=== PATIENT | female | born 1955 | race Caucasian/White ===

== ENCOUNTER 2017-04-11 11:39 | Emergency (ER) | payer MEDICARE, OTHER ==
[~2017-04-11] VITALS: Wt 80.0 kg
[~2017-04-11 11:39] MED LIST: ATEN50TA; GLIP-95; MTF1000T; PIOG30TA19; VENL75TA61
[2017-04-11] MEDS ORDERED: ACETAMINOPHEN 500 MG TAB PO STA (12:23)
--- NOTE | 2017-04-11 12:43 | ERD ---
ER Documentation Chief Complaint Date/Time DATE: 04/11/17 TIME: 12:40 Chief Complaint R LEG PAIN X 3 WEEKS HPI This is a 61-year-old female presents to the emergency department today complaining of right knee and leg pain for the past 3 weeks. Patient states that on March 19 she traveled on a bus to [place] and was on the bus for many hours and has had pain since that time. States that she did take some Advil yesterday which improved her pain a little bit. Denies any fall or significant trauma. States she is able to ambulate but has pain. Denies any fevers or chills. Denies any chest pain or shortness of breath ROS All systems reviewed and are negative except as per history of present illness. Medications Home Meds Active Scripts Naproxen* (Naprosyn*) 500 Mg Tablet, 500 MG PO BID Y for PAIN AND/OR INFLAMMATION, #30 TAB Prov:MOOK ROLLE PA-C 04/11/17 Tramadol HCl (Tramadol HCl) 50 Mg Tablet, 50 MG PO Q4 Y for PAIN, #20 TAB Prov:MOOK ROLLE PA-C 04/11/17 Reported Medications Atenolol* (Atenolol*) 50 Mg Tablet 11/18/09 Glipizide* (Glipizide*) 10 Mg Tablet 11/18/09 Venlafaxine Hcl (Effexor) 75 Mg Tablet 11/18/09 Pioglitazone Hcl* (Actos*) 30 Mg Tablet 11/18/09 Metformin* (Glucophage*) 1,000 Mg Tablet 11/18/09 Allergies Allergies: Coded Allergies: No Known Allergies (Verified Allergy, Mild, 11/18/09) PMhx/Soc History of Surgery: Yes (C SECTION) Hx Respiratory Disorders: No Hx Cardiac Disorders: Yes (HTN HIGH CHOL) Hx Alcohol Use: No Hx Substance Use: No Hx Tobacco Use: No Smoking Status: Never smoker Physical Exam Vitals Vital Signs Date Time Temp Pulse Resp B/P Pulse Ox O2 Delivery O2 Flow Rate FiO2 04/11/17 11:41 98.1 78 18 144/70 99 Physical Exam Const: Sitting in wheelchair, no acute Head: Atraumatic Eyes: Normal Conjunctiva ENT: Normal External Ears, Nose and Mouth. Neck: Full range of motion..~ No meningismus. Resp: Clear to auscultation bilaterally Cardio: Regular rate and rhythm, no murmurs Skin: No petechiae or rashes Ext: Right knee with no obvious deformity. No effusion. No ecchymosis. Tenderness to palpation along medial joint line. Full active range of motion. Mild tenderness to palpation right gastroc. Pulses 2+. Distal neurovascularly intact Neur: Awake and alert Psych: Normal Mood and Affect Results 24 hrs Current Medications Medications (Trade) Dose Ordered Sig/Ryan Route PRN Reason Start Time Stop Time Status Last Admin Dose Admin Acetaminophen (Tylenol Tab) 500 mg ONCE STAT PO 04/11/17 12:23 04/11/17 12:25 DC 04/11/17 12:28 DIAGNOSTIC IMAGING REPORT Patient: TIFFANIE ALOSNO : 1955 Age: 61 Sex: F MR #: [id number] DOS: 04/11/17 0000 Ordering MD: MOOK ROLLE PA-C Location: [facility] Room/Bed: PROCEDURE: US Lower extremity Venous. CLINICAL INDICATION: Right leg pain TECHNIQUE: Multiple sonographic images of the right lower extremity deep venous system was obtained utilizing grayscale, color-flow, compressive sonography and doppler imaging with augmentation. The images were reviewed on a PACS workstation. COMPARISON: None. FINDINGS: There is normal compressibility and flow within the right common femoral, deep femoral, superficial femoral, posterior tibial, peroneal and popliteal veins. IMPRESSION: No sonographic evidence for deep venous thrombosis. RPTAT: AA .Afshin Galeana MD, MD Date Time Electronically viewed and signed by .Afshin Galeana MD, MD on 04/11/2017 12:52 .J/ CC: MOOK ROLLE PA-C DIAGNOSTIC IMAGING REPORT Patient: TIFFANIE ALONSO : 1955 Age: 61 Sex: F MR #: [id number] DOS: 04/11/17 0000 Ordering MD: MOOK ROLLE PA-C Location: [facility] Room/Bed: PROCEDURE: XR Knee. CLINICAL INDICATION: Pain for 3 weeks. TECHNIQUE: Right knee x-rays, three views. COMPARISON: None. FINDINGS: Bony mineralization is normal. Bony cortices are intact. Mild medial compartment joint space narrowing is observed. Tiny marginal osteophytes are present. Soft tissues are unremarkable. There is a small suprapatellar joint effusion. IMPRESSION: Mild degenerative changes of the right knee. RPTAT: HLST .Leanna Cordova MD, Date Time Electronically viewed and signed by .Leanna Cordova MD, MD on 04/11/2017 13:07 .T/ CC: MOOK ROLLE PA-C Procedures/MDM This a 61-year-old female who presents to the emergency department today complaining of right knee and right leg pain after traveling for a extended period of time on a bus on March 19. Patient is afebrile and otherwise well- appearing. Patient was requesting an x-ray of her knee. Given the significant amount of pain along the medial aspect of her knee I did order an x-ray however have more concerned that given the patient's prolonged travel and some mild calf tenderness I also thought it was beneficial to obtain a Doppler ultrasound to rule out a DVT. Patient denies any chest pain or shortness of breath. She is not tachycardic and her oxygen saturations 99%. Low suspicion for PE. Per the radiology report images of the right knee show mild degenerative changes of the right knee. Mild medial compartment joint spaces are narrowed. There tiny marginal osteophytes present. Soft tissues are unremarkable. There is a small suprapatellar joint effusion. Doppler ultrasound shows no sonographic evidence for deep venous thrombosis. Patient is arthritis likely the source of her knee pain. I have explained this to her. Patient declined a Toradol injection here in the emergency department and was therefore given Tylenol. I did give the patient a short course of tramadol as well as Naprosyn given the mild joint effusion. I did offer the patient crutches however she has declined at this time. She was given an Julio wrap to help with the effusion. At this time the patient is stable for discharge and outpatient management. Patient should follow up with their PCP in the next 1-2 days for referral to forensic specialist peer. They may return to the emergency department sooner for any persistent or worsening of symptoms. Patient understood and agreed with the plan. Departure Diagnosis: Primary Impression: Pain of right leg Condition: MOOK Fall PA-C Apr 11, 2017 12:43
--- NOTE | 2017-04-11 12:52 | RADRPT ---
PROCEDURE: US Lower extremity Venous. CLINICAL INDICATION: Right leg pain TECHNIQUE: Multiple sonographic images of the right lower extremity deep venous system was obtaine d utilizing grayscale, color-flow, compressive sonography and doppler imaging with augmentation. Th e images were reviewed on a PACS workstation. COMPARISON: None. FINDINGS: There is normal compressibility and flow within the right common femoral, deep femoral, superficial femoral, posterior tibial, peroneal and popliteal veins. IMPRESSION: No sonographic evidence for deep venous thrombosis. RPTAT: AA .Afshin Galeana MD, MD Date Time Electronically viewed and signed by .Afshin Galeana MD, on 04/11/2017 12:52 .Marina/
--- NOTE | 2017-04-11 13:08 | RADRPT ---
PROCEDURE: XR Knee. CLINICAL INDICATION: Pain for 3 weeks. TECHNIQUE: Right knee x-rays, three views. COMPARISON: None. FINDINGS: Bony mineralization is normal. Bony cortices are intact. Mild medial compartment joint space narrow ing is observed. Tiny marginal osteophytes are present. Soft tissues are unremarkable. There is a s mall suprapatellar joint effusion. IMPRESSION: Mild degenerative changes of the right knee. RPTAT: HLST .Leanna Cordova MD, MD Date Time Electronically viewed and signed by .Leanna Cordova MD, on 04/11/2017 13:07 .T/
[2017-04-11] MEDS ORDERED: TRAM50TA2 PO (13:17)
[2017-04-11] MEDS ORDERED: NAPR-260 PO (13:17)
== END 2017-04-11 13:36 | disposition home or self-care (01) ==
LOC: FTE 11:39
DX: M79.604 Pain in right leg (principal); I10 Essential (primary) hypertension; Z79.84 Long term (current) use of oral hypoglycemic drugs
CPT/HCPCS: 73562; 93971

== ENCOUNTER 2018-02-13 12:59 | Emergency (ER) | END 2018-02-13 15:40 | disposition home or self-care (01) ==

== ENCOUNTER 2018-02-16 11:42 | Emergency (ER) | END 2018-02-16 13:24 | disposition home or self-care (01) ==

== ENCOUNTER 2018-07-05 18:53 | Emergency (ER) | END 2018-07-05 22:10 | disposition home or self-care (01) ==